=== PATIENT | female | born 1995 | race Caucasian/White ===

== ENCOUNTER 2020-05-16 17:19 | Emergency (ER) | payer OTHER ==
[2020-05-16 17:31] VITALS: BP 117/72; PULSE 82; TEMP 97.2; BMI 30.7
[2020-05-16] MEDS ORDERED: IBUPROFEN 600 MG TABLET (FP) PO ONE ×2 (17:46→17:49)
[2020-05-16] MEDS ORDERED: SILVER SULFADIAZINE 1% TOP CREAM 50 GM JAR TP ONE ×2 (17:46→17:49)
[2020-05-16] MEDS ORDERED: DIPHTH,PERTUSS(ACELL),TET 0.5 ML DISP.SYRIN IM ONE ×2 (17:46→17:49)
--- NOTE | 2020-05-16 17:51 | PDOC ---
History of Present Illness - General Chief Complaint: Burn Stated Complaint: BURN/EMPLOYEE Time Seen by Provider: 05/16/20 17:39 History Source: Patient Exam Limitations: No Limitations - History of Present Illness Initial Comments: 05/16/20 17:47 Patient is a 25-year-old female who presents to the ED with a burn to the volar aspect of her left forearm after accidentally brushing against a hot plate while at work. The patient works in the kitchen at [employer]. She applied ice immediately and came down to the emergency department. She states the incident happened about 1/2-hour ago. She denies any past medical history or allergies to medications. She has not taken anything for the pain. Past History - Medical History Allergies/Adverse Reactions: Allergies Allergy/AdvReac Type Severity Reaction Status Date / Time No Known Allergies Allergy Verified 05/16/20 17:46 Home Medications: Ambulatory Orders EPINEPHrine (EPI-PEN 0.3MG) [Epipen 0.3MG -] 0.3 mg IM ASDIR PRN #2 pens 03/14/13 Ranitidine [Zantac] 150 mg PO BID #6 tablet 03/14/13 hydrOXYzine PAMOATE [Vistaril -] 25 mg PO Q6H PRN #30 capsule 03/14/13 predniSONE [Deltasone -] 20 mg PO BID #6 tablet 03/14/13 CVA: No COPD: No CHF: No - Reproductive History Is Patient Now?: No - Immunization History Immunization Up to Date: Yes - Psycho-Social/Smoking History Smoking Status: No Smoking History: Never smoked Have you smoked in the past 12 months: No Information on smoking cessation initiated: No - Substance Abuse Hx (Audit-C & DAST Scrn) How often the patient has a drink containing alcohol: Never Score: In Men: 4 or > Positive; In Women: 3 or > Positive: 0 Screen Result (Pos requires Nsg. Audit-10AR): Negative In the last yr the pt used illegal drug/Rx for NonMed reason: No Score: Yes response is considered Positive: 0 Screen Result (Positive result requires Nsg. DAST-10): Negative Review of Systems - Review of Systems Comments:: 05/16/20 17:48 - Review of Systems Able to Perform ROS?: Yes Constitutional: No: Fever, Chills, Loss of Appetite, Night Sweats, Weakness HEENTM: No: Eye Pain, Vision changes, Ear Pain, Throat Pain, Throat Swelling, Mouth Pain, Difficulty Swallowing Respiratory: No: Cough, Shortness of Breath, Wheezing, Sputum Production Cardiac (ROS): No: Chest Pain, Chest Tightness, Palpitations, Irregular Heart Beat, Edema ABD/GI: No: Nausea, Vomiting, Abdominal Pain, Diarrhea : No Dysuria, No Hematuria, No Frequency, No Urgency Musculoskeletal: No: Muscle Pain, Back Pain, Joint Pain, Muscle Weakness, Neck Pain Integumentary: No: Lesions, Rash; positive: Left forearm burn Neurological: No: Headache, Numbness, Tingling, Weakness, Speech Difficulties *Physical Exam - Vital Signs Last Vital Signs Temp Pulse Resp BP Pulse Ox 97.2 F L 82 18 117/72 100 05/16/20 17:25 05/16/20 17:25 05/16/20 17:25 05/16/20 17:25 05/16/20 17:25 - Physical Exam 05/16/20 17:48 - Physical Exam General Appearance: Nourished, Appropriately Dressed, No Distress HEENT: EOMI, Normal Voice, Hearing Grossly Normal Neck: Supple, No Lymphadenopathy (R), No Lymphadenopathy (L), No Rigidity, No Decreased range of motion Respiratory/Chest: Lungs Clear, Normal Breath Sounds. No Respiratory Distress, No Accessory Muscle Use Cardiovascular: Regular Rhythm, Regular Rate, S1, S2 Musculoskeletal: Normal Inspection. No Decreased Range of Motion Extremity: Normal Capillary Refill, Normal Inspection Integumentary: Normal Color, Dry. No Rash; there is roughly a 1% body surface area first and partial-thickness second-degree burn to the left forearm on the volar aspect medially. There is a central bulla which has ruptured. No sign of infection. Significant tenderness to palpation. Neurologic: convict guard II-XII NML intact, Fully Oriented, Alert, Normal Mood/Affect, Normal Response Medical Decision Making - Medical Decision Making 05/16/20 17:49 Assessment: Patient is a 25-year-old female with a first and second-degree partial-thickness burn roughly 1% body surface area on her left forearm that she sustained roughly half hour prior to arrival. Plan: -Silvadene applied -Boostrix given -Motrin given -Patient to follow-up with employee health tomorrow for further evaluation and treatment. -Wound care instructions have been given. She understands and agrees with this treatment plan and she is stable for discharge. Discharge - Discharge Information Problems reviewed: Yes Clinical Impression/Diagnosis: Burn of left forearm Qualifiers: Encounter type: initial encounter Burn degree: partial thickness (2nd degree) Qualified Code(s): T22.212A - Burn of second degree of left forearm, initial encounter Condition: Stable Disposition: HOME - Follow up/Referral - Patient Discharge Instructions Patient Printed Discharge Instructions: DI for Colon Additional Instructions: Keep the area clean and dry. Apply the Silvadene twice daily for 7 days. If the burn is healed prior to 7 days you can stop using the Silvadene. Avoid getting the Silvadene on your tattoo as this can cause discoloration. Follow-up with employee health tomorrow for further evaluation and treatment. - Post Discharge Activity Work/Back to School Note: Back to Work
--- OUTSIDE RECORDS SUMMARY | 2020-05-16 17:56 | XMS ---
:1995 Author Organization [facility] Support Name Relationship Address Phone [facility] Unavailable [address] [place] [address] SHEEBA MORENO PARTNER [address] [place] [address] TRENT Unavailable Unavailable Unavailable TIFFANIE NOWAK MOTHER [address] [phone] [place] [address] Re-disclosure Warning The records that you are about to access may contain information from federally- assisted alcohol or drug abuse programs. If such information is present, then the following federally mandated warning applies: This information has been disclosed to you from records protected by federal confidentiality rules (42 CFR part 2). The federal rules prohibit you from making any further disclosure of this information unless further disclosure is expressly permitted by the written consent of the person to whom it pertains or as otherwise permitted by 42 CFR part 2. A general authorization for the release of medical or other information is NOT sufficient for this purpose. The Federal rules restrict any use of the information to criminally investigate or prosecute any alcohol or drug abuse patient.The records that you are about to access may contain highly sensitive health information, the redisclosure of which is protected by Article 27-F of the [facility] Public Health law. If you continue you may haveaccess to information: Regarding HIV / AIDS; Provided by facilities licensed or operated by the [facility] Office of Mental Health; or Provided by the [facility] Office for People With Developmental Disabilities. If such information is present, then the following [facility] mandated warning applies: This information has been disclosed to you from confidential records which are protected by state law. State law prohibits you from making any further disclosure of this information without the specific written consent of the person to whom it pertains, or as otherwise permitted by law. Any unauthorized further disclosure in violation of state law may result in a fine or residential sentence or both. A general authorization for the release of medical or other information is NOT sufficient authorization for further disclosure. Results ID Date Data Source [id number] 03/18/2020 12:00:00 AM EDT [facility] Name Value Range Interpretation Code Description Data Nancy rce(s) Supporting Document(s ) 2019-nCoV [facility] RNA XXX HAIM+probe- Imp This lab was ordered by [facility] and reported by [employer] Insurance Providers Payer name Policy type / Policy ID Covered Covered alliance party's Policy Plan Coverage type alliance party ID relationship to Lizama Information lizama
== END 2020-05-16 17:57 | disposition home or self-care (01) ==
LOC: JERFT 17:19
PROC: 3E0234Z Introduction of Serum, Toxoid and Vaccine into Muscle, Percutaneous Approach (ICD-10-PCS; principal; 2020-05-16)
DX: T22.212A Burn of second degree of left forearm, initial encounter (principal)
CPT/HCPCS: 90715; 99284-25